=== PATIENT | female | born 1980 | race Caucasian/White ===

== ENCOUNTER 2016-08-15 11:23 | Outpatient (CLI) ==
[2012-10-31 21:37] VITALS: TEMP 97.4
[2016-02-19 02:09] VITALS: BMI 29.7
[2016-08-15 12:52] LABS: FLU INTERNAL QC INTERNAL QC VALID; RAPID FLU A NEGATIVE (NEGATIVE); RAPID FLU B NEGATIVE (NEGATIVE)
== END 2016-08-15 11:24 | disposition home or self-care (01) ==
LOC: LAB 11:23
PROVIDERS: ATTEND Nurse Practitioner Family
DX: J02.9 Acute pharyngitis, unspecified (principal); R50.9 Fever, unspecified
CPT/HCPCS: 87651; 87804; 87880

== ENCOUNTER 2016-10-13 16:22 | Outpatient (CLI) ==
[2012-10-31 21:37] VITALS: TEMP 97.4
[2016-02-19 02:09] VITALS: BMI 29.7
[2016-10-13 17:36] LABS: BILIRUBIN,URINE 3+ (NEGATIVE); KETONES,URINE 1+ (NEGATIVE); LEUKOCYTE ESTERASE ,URINE 3+ (NEGATIVE); NITRITE,URINE Positive (NEGATIVE); PROTEIN,URINE 3+ (NEGATIVE); URINE, BLOOD 2+ (NEGATIVE)
[2016-10-13 17:37] LABS: ADD URINE MICROSCOPIC YES
[2016-10-13 17:40] LABS: BACTERIA,URINE TRACE (NOT PRESENT)
== END 2016-10-13 16:23 | disposition home or self-care (01) ==
LOC: LAB 16:22
PROVIDERS: ATTEND Nurse Practitioner Family
DX: N39.0 Urinary tract infection, site not specified (principal); R81 Glycosuria
CPT/HCPCS: 81001; 87086; 87186

== ENCOUNTER 2017-01-23 12:39 | Outpatient (CLI) ==
[2012-10-31 21:37] VITALS: TEMP 97.4
[2016-02-19 02:09] VITALS: BMI 29.7
[2017-01-23 13:29] LABS: BILIRUBIN,URINE Negative (NEGATIVE); KETONES,URINE Negative (NEGATIVE); LEUKOCYTE ESTERASE ,URINE Trace (NEGATIVE); NITRITE,URINE Negative (NEGATIVE); PH,URINE 7.5 (5-9); PROTEIN,URINE 1+ (NEGATIVE); URINE, BLOOD Trace-intact (NEGATIVE)
[2017-01-23 13:31] LABS: ADD URINE MICROSCOPIC YES
[2017-01-23 13:39] LABS: COCAIN SCREEN,URINE NEGATIVE (NEGATIVE)
[2017-01-23 13:50] LABS: BACTERIA,URINE TRACE (NOT PRESENT)
== END 2017-01-23 12:40 | disposition home or self-care (01) ==
LOC: LAB 12:39
PROVIDERS: ATTEND Nurse Practitioner Family
DX: R39.15 Urgency of urination (principal); R63.5 Abnormal weight gain; R82.2 Biliuria; R81 Glycosuria; E80.6 Other disorders of bilirubin metabolism; Z09 Encounter for follow-up examination after completed treatment for conditions other than malignant neoplasm; R82.4 Acetonuria; R80.9 Proteinuria, unspecified
CPT/HCPCS: 36415; 80306; 81001; 87086; 87186

== ENCOUNTER 2017-05-20 14:47 | Emergency (ER) ==
[2017-05-20 14:55] VITALS: BP 137/85; TEMP 95; BMI 30.7
--- NOTE | 2017-05-20 16:49 | ED.PDOC ---
General ED Provider: Dr. RONALD MAHER Chief Complaint: Behavioral Complaint Stated Complaint: substance abuse / depression Time Seen by Physician: 15:00 (denied suicidal ideation ) Mode of Arrival: Walk-In Information Source: Patient Exam Limitations: No limitations Primary Care Provider: JOSY GAFFNEY Nursing and Triage Documentation Reviewed and Agree: Yes Reviewed sepsis parameters & appropriate labs ordered?: Yes System Inflammatory Response Syndrome: Not Applicable Sepsis Protocol: For patient's 13 years and over: Temp is 96.8 and below OR 101 and greater Pulse >90 BPM Resp >20/minute Acutely Altered Mental Status Are patient's symptoms suggestive of a new infection, such as: -Pneumonia -Skin, Soft Tissue -Endocarditis -UTI -Bone, Joint Infection -Implantable Device -Acute Abdominal Infection -Wound Infection -Meningitis -Blood Stream Catheter Infection -Unknown System Inflammatory Response Syndrome: Not Applicable Psychological Complaint Exam - Substance Abuse/Use Complaint/Exam Patient Complains Of Substance Abuse Of: Amphetamines Onset/Duration: last use 2 weeks prior to today , has used IV method Abuse Began: chronic issue but today pt has stated she would like to stop the addiction Increased Use Since: no ne last use 2 weeks ago Timing: Intermittent Recent Cessation: see above Initial Severity: Moderate Current Severity: None Character: Present: Depressed, Fearful, Anxious, Frustrated Aggravating: Reports: None Alleviating: Reports: None Associated Signs And Symptoms: Reports: Sleep disturbance, Appetite change, Social isolation. Denies: Hostile, Confused, Hallucinating, Paranoid behavior, Social withdrawal, Palpitations, Short of air, Chest pain, Delirium Tremens, Diaphoretic, Tremulous, Agitated, Nausea, Vomiting, Diarrhea Related History: Denies: Suicidal thoughts, Suicidal plan, Suicidal gestures, Homicidal thoughts, Homicidal plan, Homicidal gestures, Prior attempts, Prior psych counseling, Prior psych admission Possible Multi Drug Ingestion: No Last Used Alcohol: none used Last Used Drugs: see above Completed Suicide Risk Factors: (has 2 sons ages 8 and 14) Patient In Custody Of Police: No Social Withdrawal Present: No Social Isolation Present: Yes Prior Suicide Attempt: No Injury From Prior Suicide Attempt: No Patient Uncooperative For Exam: No Mood: Present: Depressed Appearance: Present: Clean Thought Process: Present: Logical Insight: Present: Good Memory: Intact Judgement: Normal Differential Diagnoses: Drug Abuse Review of Systems - Review Of Systems Constitutional: Reports: No symptoms Eyes: Reports: No symptoms Ears, Nose, Mouth, Throat: Reports: No symptoms Respiratory: Reports: No symptoms Cardiac: Reports: No symptoms GI: Reports: No symptoms : Reports: No symptoms Musculoskeletal: Reports: No symptoms Skin: Reports: No symptoms Neurological: Reports: Depressed Endocrine: Reports: No symptoms Hematologic/Lymphatic: Reports: No symptoms All Other Systems: Reviewed and Negative Past Medical History - Past Medical History Previously Healthy: Yes Endocrine: Reports: None Cardiovascular: Reports: None Respiratory: Reports: None Hematological: Reports: None Gastrointestinal: Reports: None Genitourinary: Reports: UTI Neuro/Psych: Reports: Migraine, Anxiety, Depression, PTSD Musculoskeletal: Reports: None Cancer: Reports: None Last Menstrual Period: hysterectomy Other Pertinent Past Medical History: depr anx bladder inftonsil hystd&c - Surgical History General Surgical History: Reports: Hysterectomy (D&C), Tonsillectomy, Adenoidectomy - Family History Family History: Reports: Unknown - Social History Smoking Status: Current every day smoker, Light tobacco smoker Hx Substance Use: No Alcohol Screening: Occasionally Physical Exam - Physical Exam Appearance: Well-appearing, No pain distress, Well-nourished Eyes: JULIETTE, EOMI, Conjunctiva clear ENT: Ears normal, Nose normal, Oropharynx normal Respiratory: Airway patent, Breath sounds clear, Breath sounds equal, Respirations nonlabored Cardiovascular: RRR, Pulses normal, No rub, No murmur GI/: Soft, Nontender, No masses, Bowel sounds normal, No Organomegaly Musculoskeletal: Normal strength, ROM intact, No edema, No calf tenderness Skin: Warm, Dry, Normal color Neurological: Sensation intact, Motor intact, Reflexes intact, Cranial nerves intact, Alert, Oriented Psychiatric: Affect appropriate, Mood appropriate Critical Care Note - Critical Care Note Total Time (mins): 0 Course - Course Hematology/Chemistry: 05/20/17 14:57 05/20/17 15:15 Orders, Labs, Meds: Lab Review 05/20/17 05/20/17 05/20/17 14:57 15:15 15:15 WBC 12.01 H RBC 4.86 Hgb 13.6 Hct 40.1 MCV 82.5 MCH 28.0 MCHC 33.9 RDW Coeff of Vicky 13.2 Plt Count 322 Immature Gran % (Auto) 0.2 Neut % (Auto) 59.6 Lymph % (Auto) 28.8 Shelby % (Auto) 8.8 Eos % (Auto) 1.7 Baso % (Auto) 0.9 Immature Gran # (Auto) 0.0 Neut # 7.2 H Lymph # 3.5 H Shelby # 1.1 Eos # 0.2 Baso # 0.1 Sodium 137 Potassium 3.6 Chloride 102 Carbon Dioxide 29 Anion Gap 9.6 BUN 12 Creatinine 0.60 Estimated GFR (MDRD) 112.00 BUN/Creatinine Ratio 20.00 Glucose 115 H Calcium 9.8 Total Bilirubin 0.3 AST 12 L ALT 9 L Alkaline Phosphatase 80 Total Protein 7.4 Albumin 4.7 Globulin 2.7 Albumin/Globulin Ratio 1.74 Serum , Qual Negative Urine Color Urine Clarity Urine pH Ur Specific [place] Urine Protein Urine Glucose (UA) Urine Ketones Urine Blood Urine Nitrite Urine Bilirubin Urine Urobilinogen Ur Leukocyte Esterase Salicylate Level mg/dL Pending Urine Opiates Screen Ur Oxycodone Screen Urine Methadone Screen Ur Propoxyphene Screen Acetaminophen Pending Ur Barbiturates Screen U Tricyclic Antidepress Ur Phencyclidine Scrn Ur Amphetamine Screen U Methamphetamines Scrn U Benzodiazepines Scrn Urine Cocaine Screen U Cannabinoids Screen Plasma/Serum Alcohol Pending 05/20/17 05/20/17 15:20 15:20 WBC RBC Hgb Hct MCV MCH MCHC RDW Coeff of Vicky Plt Count Immature Gran % (Auto) Neut % (Auto) Lymph % (Auto) [place] % (Auto) Eos % (Auto) Baso % (Auto) Immature Gran # (Auto) Neut # Lymph # Shelby # Eos # Baso # Sodium Potassium Chloride Carbon Dioxide Anion Gap BUN Creatinine Estimated GFR (MDRD) BUN/Creatinine Ratio Glucose Calcium Total Bilirubin AST ALT Alkaline Phosphatase Total Protein Albumin Globulin Albumin/Globulin Ratio Serum , Qual Urine Color Yellow Urine Clarity Clear Urine pH 7.0 Ur Specific [place] 1.020 Urine Protein Negative Urine Glucose (UA) Negative Urine Ketones Negative Urine Blood Negative Urine Nitrite Negative Urine Bilirubin Negative Urine Urobilinogen 0.2 Ur Leukocyte Esterase Negative Salicylate Level mg/dL Urine Opiates Screen Negative Ur Oxycodone Screen Negative Urine Methadone Screen Negative Ur Propoxyphene Screen Negative Acetaminophen Ur Barbiturates Screen Negative U Tricyclic Antidepress Negative Ur Phencyclidine Scrn Negative Ur Amphetamine Screen Negative U Methamphetamines Scrn Negative U Benzodiazepines Scrn Negative Urine Cocaine Screen Negative U Cannabinoids Screen Negative Plasma/Serum Alcohol Orders Category Date Time Status EKG-(ED ONLY) Stat CARDIO 05/20/17 14:57 Completed ED REPORTING COORDINATOR APPLIED ONCE EMERGENCY 05/20/17 14:57 Active Mental Health Consult [ED MENTAL HEALTH CONSULT] .ONCE EMERGENCY 05/20/17 14: 58 Active ACETAMINOPHEN Stat LAB 05/20/17 15:15 Results BLOOD ALCOHOL Stat LAB 05/20/17 15:15 Results CBC W/ AUTO DIFF Stat LAB 05/20/17 14:57 Completed COMPREHENSIVE METABOLIC PANEL Stat LAB 05/20/17 15:15 Results DRUG SCREEN, URINE, RAPID Stat LAB 05/20/17 15:20 Completed SALICYLATE Stat LAB 05/20/17 15:15 Results SERUM Stat LAB 05/20/17 15:15 Completed URINALYSIS C & S IF INDICATED Stat LAB 05/20/17 15:20 Completed Vital Signs: Temp Pulse Resp BP Pulse Ox 05/20/17 14:48 95 F L 83 20 137/85 95 Departure - Departure Time of Disposition: 16:51 Disposition: HOME SELF-CARE Discharge Problem: Depression, Substance abuse Instructions: Methamphetamine Abuse (ED), Medical Clearance for Substance Abuse Treatment (ED) Condition: Good Pt referred to PMD for follow-up: Yes IPMP verified?: Yes Additional Instructions: Please call your Family Physician as soon as possible to schedule a follow-up appointment. Allergies/Adverse Reactions: Allergies povidone-iodine [From Betadine] Adverse Reaction (Verified 05/20/17 14:57) Swelling soap [From Betadine] Adverse Reaction (Verified 05/20/17 14:57) Swelling sulfamethoxazole [From Bactrim] Adverse Reaction (Verified 05/20/17 14:57) Hives trimethoprim [From Bactrim] Adverse Reaction (Verified 05/20/17 14:57) Hives Home Medications: Ambulatory Orders Lurasidone HCl [Latuda] 40 mg PO BEDTIME #30 04/24/16 Disposition Discussed With: Patient Discharge Problem: Depression Qualifiers: Depression Type: unspecified Qualified Code(s): F32.9 - Major depressive disorder, single episode, unspecified
== END 2017-05-20 16:56 | disposition home or self-care (01) ==
LOC: ED 14:47
DX: F32.9 Major depressive disorder, single episode, unspecified (principal); F15.10 Other stimulant abuse, uncomplicated; F17.210 Nicotine dependence, cigarettes, uncomplicated
CPT/HCPCS: 36415; 80053; 80306; 80307; 81001; 84703; 85025; 93005; 93010; 99283

== ENCOUNTER 2017-05-25 23:47 | Emergency (ER) ==
[2017-05-25 23:47] VITALS: BMI 30.7
[2017-05-25 23:56] VITALS: BP 128/88; TEMP 97
--- NOTE | 2017-05-25 23:59 | ED.PDOC ---
General ED Provider: Dr. TRISTEN ABRAMS Chief Complaint: Non-specific Complaint Stated Complaint: I need to be treated for scabiies, am been itching all over. Time Seen by Physician: 00:00 Mode of Arrival: Walk-In Information Source: Patient Primary Care Provider: JOSY GAFFNEY Nursing and Triage Documentation Reviewed and Agree: Yes Reviewed sepsis parameters & appropriate labs ordered?: No System Inflammatory Response Syndrome: Not Applicable Sepsis Protocol: For patient's 13 years and over: Temp is 96.8 and below OR 101 and greater Pulse >90 BPM Resp >20/minute Acutely Altered Mental Status Are patient's symptoms suggestive of a new infection, such as: -Pneumonia -Skin, Soft Tissue -Endocarditis -UTI -Bone, Joint Infection -Implantable Device -Acute Abdominal Infection -Wound Infection -Meningitis -Blood Stream Catheter Infection -Unknown Skin Complaint Exam - Skin Rash/Itching Complaint/Exam Symptoms Are: Still present Initial Severity: Moderate Current Severity: Mild Potential Exposures: Reports: Scabies Aggravating: Reports: None Alleviating: Reports: None Associated Signs and Symptoms: Denies: Difficulty breathing, Fever, Chills Skin Findings: Present: Normal findings Differential Diagnoses: Scabies Review of Systems - Review Of Systems Constitutional: Reports: No symptoms Eyes: Reports: No symptoms Ears, Nose, Mouth, Throat: Reports: No symptoms Respiratory: Reports: No symptoms Cardiac: Reports: No symptoms GI: Reports: No symptoms : Reports: No symptoms Musculoskeletal: Reports: No symptoms Skin: Reports: Rash Neurological: Reports: No symptoms Endocrine: Reports: No symptoms Hematologic/Lymphatic: Reports: No symptoms All Other Systems: Reviewed and Negative Past Medical History - Past Medical History Previously Healthy: Yes Endocrine: Reports: None Cardiovascular: Reports: None Respiratory: Reports: None Hematological: Reports: None Gastrointestinal: Reports: None Genitourinary: Reports: UTI Neuro/Psych: Reports: Migraine, Anxiety, Depression, PTSD Musculoskeletal: Reports: None Cancer: Reports: None Last Menstrual Period: HAS HAD A PARTIAL HYSTERECTOMY Other Pertinent Past Medical History: depr anx bladder inftonsil hystd&c - Surgical History General Surgical History: Reports: Hysterectomy (D&C), Tonsillectomy, Adenoidectomy - Family History Family History: Reports: Unknown - Social History Smoking Status: Current every day smoker, Light tobacco smoker Hx Substance Use: Yes Alcohol Screening: None - Immunizations Tetanus Shot up to Date: Yes Physical Exam - Physical Exam Appearance: Well-appearing, No pain distress, Well-nourished Eyes: JULIETTE, EOMI, Conjunctiva clear ENT: Ears normal, Nose normal, Oropharynx normal Respiratory: Airway patent, Breath sounds clear, Breath sounds equal, Respirations nonlabored Cardiovascular: RRR, Pulses normal, No rub, No murmur GI/: Soft, Nontender, No masses, Bowel sounds normal, No Organomegaly Musculoskeletal: Normal strength, ROM intact, No edema, No calf tenderness Skin: Warm, Dry, Normal color Neurological: Sensation intact, Motor intact, Reflexes intact, Cranial nerves intact, Alert, Oriented Psychiatric: Affect appropriate, Mood appropriate Critical Care Note - Critical Care Note Total Time (mins): 10 Course - Course Vital Signs: Temp Pulse Resp BP Pulse Ox 05/25/17 23:48 97 F L 104 H 20 128/88 98 Departure - Departure Time of Disposition: 00:05 Disposition: HOME SELF-CARE Discharge Problem: Scabies Instructions: Scabies (ED) Condition: Stable Pt referred to PMD for follow-up: Yes IPMP verified?: No Additional Instructions: skin hygiene If not better f/u with [facility] Prescriptions: Permethrin [Elimite] 60 gm TP ONCE #2 cream..g. Prednisone 10 mg PO BIDWM #14 tablet Allergies/Adverse Reactions: Allergies povidone-iodine [From Betadine] Adverse Reaction (Verified 05/25/17 23:56) Swelling soap [From Betadine] Adverse Reaction (Verified 05/25/17 23:56) Swelling sulfamethoxazole [From Bactrim] Adverse Reaction (Verified 05/25/17 23:56) Hives trimethoprim [From Bactrim] Adverse Reaction (Verified 05/25/17 23:56) Hives Home Medications: Ambulatory Orders Lurasidone HCl [Latuda] 40 mg PO BEDTIME #30 04/24/16 Permethrin [Elimite] 60 gm TP ONCE #2 cream..g. 05/26/17 Prednisone 10 mg PO BIDWM #14 tablet 05/26/17 Disposition Discussed With: Patient
[2017-05-26] MEDS ORDERED: DECADRON 4 MG/ML SDV IM STA
== END 2017-05-26 00:35 | disposition home or self-care (01) ==
LOC: ED 23:47
DX: B86 Scabies (principal); F17.210 Nicotine dependence, cigarettes, uncomplicated
CPT/HCPCS: 96372; 99282

== ENCOUNTER 2017-05-26 19:28 | Emergency (ER) ==
[2017-05-26 19:29] VITALS: BMI 30.7
[2017-05-26 19:40] VITALS: BP 120/82; TEMP 98.8
--- NOTE | 2017-05-26 19:56 | ED.PDOC ---
General ED Provider: Dr. EL WALL Chief Complaint: Medication Refill Stated Complaint: Patients states she has scabies has been stressed out alot so that after being seen here yesterday forgot to get her medications filled. Time Seen by Physician: 19:40 Mode of Arrival: Walk-In Information Source: Patient Exam Limitations: No limitations Primary Care Provider: JOSY GAFFNEY Nursing and Triage Documentation Reviewed and Agree: Yes Reviewed sepsis parameters & appropriate labs ordered?: Yes System Inflammatory Response Syndrome: Not Applicable Sepsis Protocol: For patient's 13 years and over: Temp is 96.8 and below OR 101 and greater Pulse >90 BPM Resp >20/minute Acutely Altered Mental Status Are patient's symptoms suggestive of a new infection, such as: -Pneumonia -Skin, Soft Tissue -Endocarditis -UTI -Bone, Joint Infection -Implantable Device -Acute Abdominal Infection -Wound Infection -Meningitis -Blood Stream Catheter Infection -Unknown System Inflammatory Response Syndrome: Not Applicable Skin Complaint Exam - Skin/Soft Tissue Complaint/Exam Onset/Duration: 2 days Symptoms Are: Still present Timing: Constant Initial Severity: Moderate Current Severity: Moderate Location: whole body Associated Signs and Symptoms: Reports: Itching Recent Exposure to Others w/Similar Symptoms: No Skin Findings: Present: Skin lesion Differential Diagnoses: Other (scabies) Review of Systems - Review Of Systems Constitutional: Reports: No symptoms Eyes: Reports: No symptoms Ears, Nose, Mouth, Throat: Reports: No symptoms Respiratory: Reports: No symptoms Cardiac: Reports: No symptoms GI: Reports: No symptoms : Reports: No symptoms Musculoskeletal: Reports: No symptoms Skin: Reports: Rash (itching) Neurological: Reports: No symptoms Endocrine: Reports: No symptoms Hematologic/Lymphatic: Reports: No symptoms All Other Systems: Reviewed and Negative Past Medical History - Past Medical History Previously Healthy: Yes Endocrine: Reports: None Cardiovascular: Reports: None Respiratory: Reports: None Hematological: Reports: None Gastrointestinal: Reports: None Genitourinary: Reports: UTI Neuro/Psych: Reports: Migraine, Anxiety, Depression, PTSD Musculoskeletal: Reports: None Cancer: Reports: None Last Menstrual Period: hysterectomy Other Pertinent Past Medical History: depr anx bladder inftonsil hystd&c - Surgical History General Surgical History: Reports: Hysterectomy (D&C), Tonsillectomy, Adenoidectomy - Family History Family History: Reports: Unknown - Social History Smoking Status: Current every day smoker, Light tobacco smoker Hx Substance Use: No Alcohol Screening: Occasionally Physical Exam - Physical Exam Appearance: Well-appearing, No pain distress, Well-nourished Eyes: JULIETTE, EOMI, Conjunctiva clear ENT: Ears normal, Nose normal, Oropharynx normal Neck: Supple Respiratory: Airway patent, Breath sounds clear, Breath sounds equal, Respirations nonlabored Cardiovascular: RRR, Pulses normal, No rub, No murmur GI/: Soft, Nontender, No masses, Bowel sounds normal, No Organomegaly Musculoskeletal: Normal strength, ROM intact, No edema, No calf tenderness Skin: Warm, Dry Neurological: Sensation intact, Motor intact, Reflexes intact, Cranial nerves intact, Alert, Oriented Psychiatric: Anxious, Depressed (but not currently suicidal. ) Critical Care Note - Critical Care Note Total Time (mins): 0 Course - Course Vital Signs: Temp Pulse Resp BP Pulse Ox 05/26/17 19:29 98.8 F 93 H 20 120/82 96 Departure - Departure Time of Disposition: 19:54 Disposition: HOME SELF-CARE Discharge Problem: Scabies Instructions: Scabies (ED) Condition: Stable Pt referred to PMD for follow-up: Yes IPMP verified?: No (n/A) Additional Instructions: Must Fill your medications and use them as prescribed. Followup with PCP in 3 day Allergies/Adverse Reactions: Allergies povidone-iodine [From Betadine] Adverse Reaction (Verified 05/26/17 19:37) Swelling soap [From Betadine] Adverse Reaction (Verified 05/26/17 19:37) Swelling sulfamethoxazole [From Bactrim] Adverse Reaction (Verified 05/26/17 19:37) Hives trimethoprim [From Bactrim] Adverse Reaction (Verified 05/26/17 19:37) Hives Home Medications: Ambulatory Orders Lurasidone HCl [Latuda] 40 mg PO BEDTIME #30 04/24/16 Permethrin [Elimite] 60 gm TP ONCE #2 cream..g. 05/26/17 Prednisone 10 mg PO BIDWM #14 tablet 05/26/17 Disposition Discussed With: Patient, Family
== END 2017-05-26 20:01 | disposition home or self-care (01) ==
LOC: ED 19:28
DX: B86 Scabies (principal)
CPT/HCPCS: 99282

== ENCOUNTER 2018-05-29 14:15 | Emergency (ER) ==
[2018-05-29 14:23] VITALS: BP 131/84; TEMP 97.9; BMI 32.7
--- NOTE | 2018-05-29 15:55 | ED.PDOC ---
General ED Provider: Dr. ROMAN WEBER Chief Complaint: Breast Pain Stated Complaint: Lt Breast Pain. Patient present with a one week history of swelling and pain of the medial aspect of the lt breast. Thought she noted a "mosquito bite like area but the area startes swelling and her breast is painful and swolledn, feeling sensatin of burning and shooting like pain. Denies Drainage, denies fever, chills or night sweats. Time Seen by Physician: 15:10 Mode of Arrival: Walk-In Information Source: Patient Exam Limitations: No limitations Primary Care Provider: RAHEL BYRNES Nursing and Triage Documentation Reviewed and Agree: Yes (Examined pt in presence of nurse) Does patient meet sepsis criteria?: No System Inflammatory Response Syndrome: Not Applicable Sepsis Protocol: For patient's 13 years and over: Temp is 96.8 and below OR 101 and greater Pulse >90 BPM Resp >20/minute Acutely Altered Mental Status Are patient's symptoms suggestive of a new infection, such as: -Pneumonia -Skin, Soft Tissue -Endocarditis -UTI -Bone, Joint Infection -Implantable Device -Acute Abdominal Infection -Wound Infection -Meningitis -Blood Stream Catheter Infection -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 Denies: Nodule, Mass, Discharge, Fever, Trauma Related History: Denies: Similar episode, Fibrocystic Breast Disease History of Radiation: No History of : No History of Piercings: No Related Surgical History: Reports: None Breast Exam: Present: Discolored (Erythrema along medial aspect no central sites of drainag) Axillary Lymphadenopathy: No Mass: Present: None Discharge: Present: None Differential Diagnoses: Breast Abscess Review of Systems - Review Of Systems Constitutional: Reports: No symptoms Eyes: Reports: No symptoms Ears, Nose, Mouth, Throat: Reports: No symptoms Respiratory: Reports: No symptoms Cardiac: Reports: No symptoms GI: Reports: No symptoms : Reports: No symptoms Musculoskeletal: Reports: No symptoms Skin: Reports: Change in color (lt breast) Neurological: Reports: No symptoms Endocrine: Reports: No symptoms Hematologic/Lymphatic: Reports: No symptoms All Other Systems: Reviewed and Negative Past Medical History - Past Medical History Previously Healthy: Yes Endocrine: Reports: None Cardiovascular: Reports: None Respiratory: Reports: None Hematological: Reports: None Gastrointestinal: Reports: None Genitourinary: Reports: UTI Neuro/Psych: Reports: Migraine, Anxiety, Depression, PTSD Musculoskeletal: Reports: None Cancer: Reports: None Last Menstrual Period: PARTIAL HYSTERECTOMY Other Pertinent Past Medical History: depr anx bladder inftonsil hystd&c - Surgical History General Surgical History: Reports: Hysterectomy (D&C), Tonsillectomy, Adenoidectomy - Family History Family History: Reports: Unknown - Social History Smoking Status: Current every day smoker, Light tobacco smoker Hx Substance Use: No Alcohol Screening: Occasionally Physical Exam - Physical Exam Appearance: Well-appearing, No pain distress, Well-nourished Eyes: JULIETTE, EOMI, Conjunctiva clear ENT: Ears normal, Nose normal, Oropharynx normal Respiratory: Airway patent, Breath sounds clear, Breath sounds equal, Respirations nonlabored Cardiovascular: RRR, Pulses normal, No rub, No murmur GI/: Soft, Nontender, No masses, Bowel sounds normal, No Organomegaly Musculoskeletal: Normal strength, ROM intact, No edema, No calf tenderness Skin: Warm, Dry, Normal color Neurological: Sensation intact, Motor intact, Reflexes intact, Cranial nerves intact, Alert, Oriented Psychiatric: Affect appropriate, Mood appropriate Critical Care Note - Critical Care Note Total Time (mins): 60 Course - Course Hematology/Chemistry: 05/29/18 16:10 05/29/18 16:10 Orders, Labs, Meds: Lab Review 05/29/18 05/29/18 16:10 16:10 WBC 8.76 RBC 5.05 Hgb 14.1 Hct 42.7 MCV 84.6 MCH 27.9 MCHC 33.0 RDW Coeff of Vicky 12.9 Plt Count 311 Immature Gran % (Auto) 0.2 Neut % (Auto) 67.6 Lymph % (Auto) 19.7 [place] % (Auto) 8.9 Eos % (Auto) 2.9 Baso % (Auto) 0.7 Immature Gran # (Auto) 0.0 Neut # (Auto) 5.9 Lymph # (Auto) 1.7 [place] # (Auto) 0.8 Eos # (Auto) 0.3 Baso # (Auto) 0.1 Sodium 139.3 Potassium 3.85 Chloride 101.0 Carbon Dioxide 28.0 Anion Gap 14.15 BUN 9.1 Creatinine 0.63 Estimated GFR (MDRD) 106.00 BUN/Creatinine Ratio 14.44 Glucose 106.9 H Calcium 9.59 Total Bilirubin 0.30 AST 19.1 ALT 13.7 Alkaline Phosphatase 95.0 Total Protein 7.90 Albumin 4.56 Globulin 3.34 Albumin/Globulin Ratio 1.36 Orders Category Date Time Status CBC W/ AUTO DIFF Stat LAB 05/29/18 16:10 Completed CMP [COMPREHENSIVE METABOLIC PANEL] Stat LAB 05/29/18 16:10 Completed Ceftriaxone Sodium [Rocephin] MEDS 05/29/18 16:52 Discontinued 1 gm IM ONCE STA Ketorolac Tromethamine [Toradol] MEDS 05/29/18 16:00 Discontinued 30 mg IM ONCE STA Lidocaine HCl/Pf [Lidocaine HCl 1% Sdv] MEDS 05/29/18 16:52 Discontinued 2.1 ml IM ONCE STA Medications Discontinued Medications Generic Name Dose Route Start Last Admin Trade Name Laurence PRN Reason Stop Dose Admin Ceftriaxone Sodium 1 gm 05/29/18 16:52 05/29/18 17:05 Rocephin IM 05/29/18 16:53 1 gm ONCE STA Administration Ketorolac Tromethamine 30 mg 05/29/18 16:00 05/29/18 16:07 Toradol IM 05/29/18 16:01 30 mg ONCE STA Administration Lidocaine HCl 2.1 ml 05/29/18 16:52 05/29/18 17:06 Lidocaine Hcl 1% Sdv IM 05/29/18 16:53 2.1 ml ONCE STA Administration Vital Signs: Temp Pulse Resp BP Pulse Ox 05/29/18 14:20 97.9 F 96 H 18 131/84 98 Departure - Departure Time of Disposition: 17:15 Disposition: HOME SELF-CARE Discharge Problem: Mastitis Instructions: Mastitis (ED) Condition: Good Pt referred to PMD for follow-up: Yes ([facility] at [facility] [place] in [place]-call for apt next week) IPMP verified?: No Additional Instructions: Supporting BRA Apply warm moist heat for 20 min several times daily' Take Ibuprofen 800 mg routine 3 times daily for pain control RX [place] for severe pain plus antibiotic Call for appointment at [facility] on Thursday Prescriptions: Hydrocodone Bit/Acetaminophen [[place] 5-325] 1 each PO Q4HR PRN #20 tablet PRN Reason: PRN Pain Clindamycin HCl [Cleocin HCl] 300 mg PO QID #40 capsule Allergies/Adverse Reactions: Allergies povidone-iodine [From Betadine] Adverse Reaction (Verified 05/26/17 19:37) Swelling soap [From Betadine] Adverse Reaction (Verified 05/26/17 19:37) Swelling sulfamethoxazole [From Bactrim] Adverse Reaction (Verified 05/26/17 19:37) Hives trimethoprim [From Bactrim] Adverse Reaction (Verified 05/26/17 19:37) Hives Home Medications: Ambulatory Orders Aripiprazole [Abilify] 5 mg PO DAILY 03/09/18 Clonazepam [Klonopin] 1 mg PO BID 03/09/18 Duloxetine HCl [Cymbalta] 60 mg PO DAILY 03/09/18 Clindamycin HCl [Cleocin HCl] 300 mg PO QID #40 capsule 05/29/18 Dextroamphetamine/Amphetamine [Adderall 20 mg Tablet] 20 mg PO DAILY 05/29/18 Hydrocodone Bit/Acetaminophen [[place] 5-325] 1 each PO Q4HR PRN #20 tablet
[2018-05-29] MEDS ORDERED: TORADOL IM STA (16:00)
[2018-05-29] MEDS ORDERED: ROCEPHIN IM STA (16:52)
[2018-05-29] MEDS ORDERED: LIDOCAINE HCL 1% SDV IM STA (16:52)
== END 2018-05-29 17:29 | disposition home or self-care (01) ==
LOC: ED 14:15
DX: N61.0 Mastitis without abscess (principal); F17.210 Nicotine dependence, cigarettes, uncomplicated
CPT/HCPCS: 36415; 80053; 85025; 96372; 99283